=== PATIENT | male | born 1980 | race Caucasian/White ===

== ENCOUNTER 2017-07-06 14:41 | Observation (INO) | payer OTHER ==
[2017-07-06 14:42] VITALS: BP 144/81; PULSE 104; RESP 16; TEMP 98.1; O2SAT 97
[2017-07-06] MEDS ORDERED: SODIUM CHLORIDE 0.9% FLUSH 10 ML FLUSH IV FLUSH PRN (16:45)
[2017-07-06] MEDS ORDERED: SODIUM CHLOR 0.9% 1000 ML INJ 1,000 ML IV SCH (16:45)
[2017-07-06] MEDS ORDERED: FAMOTIDINE 20 MG/2 ML VIAL IV PUSH ONE (16:45)
--- NOTE | 2017-07-06 16:51 | PD ---
HPI Chief Complaint: Abdominal Pain Time Seen by Provider: 16:39 Travel History International Travel<30 days: No Contact w/Intl Traveler<30days: No Traveled to known affect area: No History of Present Illness HPI 37-year-old male complains of right lower quadrant abdominal pain nausea. Patient states the symptoms started yesterday morning. Patient states the pain is cramping pain across her lower abdomen especially right lower quadrant of the abdomen. Patient denies any pain radiation. Patient denies any fever chills. Patient denies any dysuria or frequency. Patient denies any back pain. Patient has history of recurrent abdominal pain unknown etiology in the past. Patient is on omeprazole. Patient denies history hypertension, diabetes , hyperlipidemia. Patient is a smoker. Patient was seen in the [place] clinic today and had a CBC and CMP done. CBC with WBC of 16.5. Hemoglobin 15 point hematocrit 44.5. 77 neutrophil. CMP with calcium 10.8. Normal kidney function. Patient was advised to go to the emergency room for evaluation of possible appendicitis. [facility] Past Medical History Medical History: Denies Significant Hx Diminished Hearing: No Influenza Vaccination: No Past Surgical History Oral Surgery: Yes (wisdom teeth) Other Surgery: Yes (skin ca removed left hand) Social History Alcohol Use: No Tobacco Use: Yes (1/2 ppd) Substance Use: Yes (marijuana daily) Allergies-Medications (Allergen,Severity, Reaction): Coded Allergies: No Known Allergies (Unverified , 07/06/17) Review of Systems General / Constitutional: No: Fever Eyes: No: Visual changes HENT: No: Headaches Cardiovascular: No: Chest Pain or Discomfort Respiratory: No: Shortness of Breath Gastrointestinal: Positive: Abdominal Pain Genitourinary: No: Dysuria Musculoskeletal: No: Pain Skin: No Rash Neurologic: No: Weakness Psychiatric: No: Depression Endocrine: No: Polydipsia Hematologic/Lymphatic: No: Easy Bruising Physical Exam Narrative GENERAL: Well-nourished, well-developed patient. SKIN: Focused skin assessment warm/dry. HEAD: Normocephalic. EYES: No scleral icterus. No injection or drainage. NECK: Supple, trachea midline. No JVD or lymphadenopathy. CARDIOVASCULAR: Regular rate and rhythm without murmurs, gallops, or rubs. RESPIRATORY: Breath sounds equal bilaterally. No accessory muscle use. GASTROINTESTINAL: Abdomen soft, nondistended. Patient has moderate tenderness on palpation right lower quadrant of the abdomen. No rebound tenderness. No mass. MUSCULOSKELETAL: No cyanosis, or edema. BACK: Nontender without obvious deformity. No CVA tenderness. Neurologic exam normal. Data Data Last Documented VS Vital Signs Date Time Temp Pulse Resp B/P (MAP) Pulse Ox O2 Delivery O2 Flow Rate FiO2 07/06/17 17:35 16 97 Room Air 07/06/17 14:42 98.1 104 Orders Orders Iv Access Insert/Monitor (07/06/17 16:45) Ecg Monitoring (07/06/17 16:45) Oximetry (07/06/17 16:45) Sodium Chlor 0.9% 1000 Ml Inj (Ns 1000 M (07/06/17 16:45) Sodium Chloride 0.9% Flush (Ns Flush) (07/06/17 16:45) Famotidine Inj (Pepcid Inj) (07/06/17 16:45) Ct Abd/Pel W Iv Contrast(Rout) (07/06/17 16:45) Iohexol 350 Inj (Omnipaque 350 Inj) (07/06/17 18:42) Levofloxacin 750 Mg Premix Inj (Levaquin (07/06/17 20:15) Metronidazole 500 Mg Inj (Flagyl 500 Mg (07/06/17 20:15) Sodium Chlor 0.9% 1000 Ml Inj (Ns 1000 M (07/06/17 20:15) MDM Medical Decision Making Medical Screen Exam Complete: Yes Emergency Medical Condition: Yes Interpretation(s) 8:[address] scan abdomen and pelvis shows thickening of sigmoid colon typical focal colitis. Differential Diagnosis Differential diagnosis including appendicitis, UTI, pyelonephritis, nephrolithiasis, colitis. Narrative Course 37-year-old male with right lower quadrant abdominal pain. Normal saline solution 1 25 cc an hour. Levaquin 750 mg IV. Flagyl 500 mg IV. Diagnosis Primary Impression: Colitis Admitting Information Admitting Physician Requests: Observation Robby Quevedo MD Jul 06, 2017 16:51
[2017-07-06 17:35] VITALS: RESP 16; O2SAT 97
[2017-07-06] MEDS ORDERED: IOHEXOL 350 MG/ML 10 ML VIAL (for RAD DIAG) IVCONTRAST ONE (18:42)
--- NOTE | 2017-07-06 19:48 | RADRPT ---
EXAM DATE/TIME: 07/06/2017 18:24 [place] COMPARISON: No previous studies available for comparison. INDICATIONS : Right lower quadrant pain since yesterday. IV CONTRAST: 90 cc Omnipaque 350 (iohexol) IV ORAL CONTRAST: No oral contrast ingested. RADIATION DOSE: 16.49 CTDIvol (mGy) MEDICAL HISTORY : Skin cancer. SURGICAL HISTORY : None. ENCOUNTER: Initial ACUITY: 1 day PAIN SCALE: 5/10 LOCATION: Right lower quadrant TECHNIQUE: Volumetric scanning of the abdomen and pelvis was performed. Using automated exposure control and adjustment of the mA and/or kV according to patient size, radiation dose was kept as low as reasonably achievable to obtain optimal diagnostic quality images. DICOM format image data is av ailable electronically for review and comparison. FINDINGS: There is thickening of the mid sigmoid colon in the right lower quadrant and midline of the pelvis. There is prominent surrounding inflammatory change. No abscess is seen. There is a s mall focus of extraluminal air seen at the superior margin of the sigmoid colon in this region. Ther e are a few scattered diverticula in the remaining aspect of the colon. There is diffuse decreased attenuation of the liver. No focal hepatic lesions are seen. The spleen, pancreas, adrenal glands and kidneys are normal. There is minimal hiatal hernia. The pelvic struct ures are grossly intact. The lung bases are clear. The bony structures are grossly intact. CONCLUSION: 1. Thickening of the sigmoid colon with very prominent surrounding inflammatory change likely related to focal colitis. This also could be secondary to diverticulitis. An abscess is not seen. 2. Hepatic steatosis. Yosef Workman MD on July 06, 2017 at 19:29 Board Certified Radiologist. This report was verified electronically.
[2017-07-06] MEDS: SODIUM CHLOR 0.9% 1000 ML INJ 1,000 ML IV SCH (20:15)
[2017-07-06] MEDS ORDERED: metroNIDAZOLE 500 MG INJ 100 ML IV ONE (20:15)
[2017-07-06] MEDS ORDERED: LEVOFLOXACIN 750 MG PREMIX INJ 150 ML IV ONE (20:15)
[2017-07-06 20:18] VITALS: BP 129/67; PULSE 85; RESP 16; O2SAT 95
[2017-07-06] MEDS ORDERED: NALOXONE HCL 0.4 MG/ML AMP IV PUSH PRN (20:45)
[2017-07-06] MEDS: metroNIDAZOLE 500 MG INJ 100 ML IV SCH (21:12)
[2017-07-06] MEDS: SODIUM CHLORIDE 0.9% FLUSH 10 ML FLUSH IV FLUSH SCH (21:12)
[2017-07-06 21:32] VITALS: BP 130/68; PULSE 82; RESP 18; TEMP 98.2; O2SAT 94
[2017-07-06 21:37] LABS: AUTOMATED NEUTROPHIL # 10.8 TH/MM3 (1.8-7.7); BASOPHIL # 0.1 TH/MM3 (0-0.2); BASOPHIL % 0.5 % (0.0-2.0); EOSINOPHIL # 0.3 TH/MM3 (0-0.4); EOSINOPHIL % 1.9 % (0.0-4.0); HEMO FLAGS DIFF FINAL; LYMPHOCYTE # 2.7 TH/MM3 (1.0-4.8); MEAN CORPUSCULAR HGB CONC 34.4 % (32.0-36.0); NEUT % 71.6 % (16.0-70.0); PLATELET COUNT 222 TH/MM3 (150-450); RED BLOOD COUNT 4.67 MIL/MM3 (4.50-5.90); RED CELL DISTRIBUTION WIDTH 13.5 % (11.6-17.2); WHITE BLOOD COUNT 15.1 TH/MM3 (4.0-11.0)
[2017-07-06 21:45] LABS: ANION GAP 8 MEQ/L (5-15); AST (GOT) 21 U/L (15-37); BICARBONATE 26.5 MEQ/L (21.0-32.0); BLOOD UREA NITROGEN 14 MG/DL (7-18); CHLORIDE 102 MEQ/L (98-107); GLOMERULAR FILTRATION RATE 84 ML/MIN (>89); POTASSIUM 3.6 MEQ/L (3.5-5.1); SODIUM (NA) 136 MEQ/L (136-145)
[2017-07-06 21:48] LABS: ALKALINE PHOSPHATASE 71 U/L (45-117); ALT (GPT) 61 U/L (12-78); TOTAL BILIRUBIN ADULT 0.8 MG/DL (0.2-1.0)
[2017-07-06] MEDS: CIPROFLOXACIN 400 MG PREMIX 200 ML IV SCH (23:54)
[2017-07-06] MEDS: SODIUM CHLORIDE 0.9% FLUSH 10 ML FLUSH IV FLUSH PRN (23:54)
[2017-07-07] MEDS: SODIUM CHLOR 0.9% 1000 ML INJ 1,000 ML IV SCH (01:11)
[2017-07-07] MEDS: SODIUM CHLORIDE 0.9% FLUSH 10 ML FLUSH IV FLUSH PRN (01:12)
[2017-07-07 01:19] VITALS: BP 129/66; PULSE 78; RESP 18; TEMP 98.9; O2SAT 95
[2017-07-07 03:47] VITALS: BP 132/96; PULSE 79; RESP 18; TEMP 98.6; O2SAT 95
--- NOTE | 2017-07-07 04:56 | HHI.HP ---
[facility] Admission Diagnosis colitis Diagnoses: Travel History International Travel<30 Days: No Contact w/Intl Traveler <30 Da: No Traveled to Known Affected Are: No History of Present Illness 37-year-old male with past medical history significant for GERD presents to the emergency department with right sided abdominal pain since Wednesday. The patient complains of cramping pain that is worse in the right lower quadrant that extends across to his left lower quadrant. He endorses nausea but denies vomiting or diarrhea. He states the pain improved slightly yesterday morning but worsened again while he was at work. He states he was crawling over some equipment and at that time the pain returned and was severe in nature. He went to see his primary care provider who referred him to the ED for further evaluation. Labs were significant for a leukocytosis of 15.1. CT of the abdomen and pelvis was significant for thickening of the sigmoid colon with surrounding inflammatory change likely related to focal colitis. Review of Systems Denies fever or chills Denies blurry vision, otorrhea, rhinorrhea Denies sore throat and cough No chest pain, palpitations, shortness of breath Positive abdominal pain Positive nausea, denies constipation/diarrhea/vomiting Denies muscle pain/weakness No rashes Past Family Social History Past Medical History GERD Past Surgical History [place] tooth removal Skin cancer removed from his left hand Reported Medications Omeprazole Allergies: Coded Allergies: No Known Allergies (Unverified , 07/06/17) Family History Father with diabetes mellitus. Social History Smokes approximately one half pack per day 20 years. Occasional alcohol use. Positive marijuana use. Denies other illicit drugs. Physical Exam Vital Signs Vital Signs Date Time Temp Pulse Resp B/P (MAP) Pulse Ox O2 Delivery O2 Flow Rate FiO2 07/07/17 03:47 98.6 79 18 132/96 (108) 95 07/07/17 01:19 98.9 78 18 129/66 (87) 95 07/06/17 21:32 98.2 82 18 130/68 (88) 94 07/06/17 20:18 85 16 129/67 (87) 95 Room Air 07/06/17 17:35 16 97 Room Air 07/06/17 14:42 98.1 104 16 144/81 (102) 97 Physical Exam GENERAL: male lying in bed SKIN: No rashes, ecchymoses or lesions. Cool and dry. HEAD: Atraumatic. Normocephalic. No temporal or scalp tenderness. EYES: Pupils equal round and reactive. Extraocular motions intact. No scleral icterus. No injection or drainage. ENT: Nose without bleeding, purulent drainage or septal hematoma. Throat without erythema, tonsillar hypertrophy or exudate. Uvula midline. Airway patent. NECK: Trachea midline. No JVD or lymphadenopathy. Supple, nontender, no meningeal signs. CARDIOVASCULAR: Regular rate and rhythm without murmurs, gallops, or rubs. RESPIRATORY: Clear to auscultation. Breath sounds equal bilaterally. No wheezes , rales, or rhonchi. GASTROINTESTINAL: Abdomen soft, nondistended. Tender to palpation in the left lower quadrants, right greater than left. No hepato-splenomegaly, or palpable masses. No guarding. MUSCULOSKELETAL: Extremities without clubbing, cyanosis, or edema. No joint tenderness, effusion, or edema noted. No calf tenderness. Negative Homans sign bilaterally. NEUROLOGICAL: Awake and alert. Cranial nerves II through XII intact. Motor and sensory grossly within normal limits. Normal speech. Laboratory Laboratory Tests Test 07/06/17 21:15 White Blood Count 15.1 Red Blood Count 4.67 Hemoglobin 14.5 Hematocrit 42.0 Mean Corpuscular Volume 90.0 Mean Corpuscular Hemoglobin 31.0 Mean Corpuscular Hemoglobin Concent 34.4 Red Cell Distribution Width 13.5 Platelet Count 222 Mean Platelet Volume 9.0 Neutrophils (%) (Auto) 71.6 Lymphocytes (%) (Auto) 18.0 Monocytes (%) (Auto) 8.0 Eosinophils (%) (Auto) 1.9 Basophils (%) (Auto) 0.5 Neutrophils # (Auto) 10.8 Lymphocytes # (Auto) 2.7 Monocytes # (Auto) 1.2 Eosinophils # (Auto) 0.3 Basophils # (Auto) 0.1 CBC Comment DIFF FINAL Differential Comment Blood Urea Nitrogen 14 Creatinine 1.00 Random Glucose 100 Total Protein 8.0 Albumin 3.7 Calcium Level 8.7 Alkaline Phosphatase 71 Aspartate Amino Transf (AST/SGOT) 21 Alanine Aminotransferase (ALT/SGPT) 61 Total Bilirubin 0.8 Sodium Level 136 Potassium Level 3.6 Chloride Level 102 Carbon Dioxide Level 26.5 Anion Gap 8 Estimat Glomerular Filtration Rate 84 Result Diagram: 07/06/17211407/06/172114 [facility] Risk Assessment Caprini VTE Risk Assessment: No/Low Risk (score <= 1) Caprini Risk Assessment Model Point Value = 1 Point Value = 2 Point Value = 3 Point Value = 5 Age 41-60 Minor surgery BMI > 25 kg/m2 Swollen legs Varicose veins or History of unexplained or recurrent spontaneous Oral contraceptives or hormone replacement Sepsis (< 1 month) Serious lung disease, including pneumonia (< 1 month) Abnormal pulmonary function Acute myocardial infarction Congestive heart failure (< 1 month) History of inflammatory bowel disease Medical patient at bed rest Age 61-74 Arthroscopic surgery Major open surgery (> 45 min) Laparoscopic surgery (> 45 min) Malignancy Confined to bed (> 72 hours) Immobilizing plaster cast Central venous access Age >= 75 History of VTE Family history of VTE Factor V Leiden Prothrombin [id number] Lupus anticoagulant Anticardiolipin antibodies Elevated serum homocysteine Heparin-induced thrombocytopenia Other congenital or acquired thrombophilia Stroke (< 1 month) Elective arthroplasty Hip, pelvis, or leg fracture Acute spinal cord injury (< 1 month) Prophylaxis Regimen Total Risk Factor Score Risk Level Prophylaxis Regimen 0-1 Low Early ambulation 2 Moderate Order ONE of the following: *Sequential Compression Device (SCD) *Heparin 5000 units SQ BID 3-4 Higher Order ONE of the following medications: *Heparin 5000 units SQ TID *Enoxaparin/Lovenox 40 mg SQ daily (WT < 150 kg, CrCl > 30 mL/min) *Enoxaparin/Lovenox 30 mg SQ daily (WT < 150 kg, CrCl > 10-29 mL/min) *Enoxaparin/Lovenox 30 mg SQ BID (WT < 150 kg, CrCl > 30 mL/min) AND/OR *Sequential Compression Device (SCD) 5 or more Highest Order ONE of the following medications: *Heparin 5000 units SQ TID (Preferred with Epidurals) *Enoxaparin/Lovenox 40 mg SQ daily (WT < 150 kg, CrCl > 30 mL/min) *Enoxaparin/Lovenox 30 mg SQ daily (WT < 150 kg, CrCl > 10-29 mL/min) *Enoxaparin/Lovenox 30 mg SQ BID (WT < 150 kg, CrCl > 30 mL/min) AND *Sequential Compression Device (SCD) Assessment and Plan Assessment and Plan 37-year-old male with past medical history of GERD presents with 2 day history of abdominal pain. 1. Colitis CT of the abdomen and pelvis showed thickened sigmoid colon Cipro/Flagyl PO challenge IV fluids Anticipate transition to by mouth antibiotics and possible discharge later today 2. GERD Protonix FEN Clear liquid diet Electrolytes: wnl, monitor and replete prn NS at 125 cc/hr BRYNs Haleigh Cuevas MD Jul 07, 2017 04:56
[2017-07-07] MEDS: metroNIDAZOLE 500 MG INJ 100 ML IV SCH (05:09)
[2017-07-07 06:12] LABS: AUTOMATED NEUTROPHIL # 10.1 TH/MM3 (1.8-7.7); BASOPHIL # 0.1 TH/MM3 (0-0.2); BASOPHIL % 0.7 % (0.0-2.0); EOSINOPHIL # 0.3 TH/MM3 (0-0.4); EOSINOPHIL % 1.8 % (0.0-4.0); HEMATOCRIT 42.3 % (39.0-51.0); HEMO FLAGS DIFF FINAL; LYMPH % 17.4 % (9.0-44.0); LYMPHOCYTE # 2.4 TH/MM3 (1.0-4.8); MEAN CELL VOLUME 90.5 FL (80.0-100.0); MEAN CORPUSCULAR HEMOGLOBIN 31.1 PG (27.0-34.0); MEAN CORPUSCULAR HGB CONC 34.4 % (32.0-36.0); MONO % 8.1 % (0.0-8.0); PLATELET COUNT 228 TH/MM3 (150-450); RED BLOOD COUNT 4.68 MIL/MM3 (4.50-5.90); RED CELL DISTRIBUTION WIDTH 13.6 % (11.6-17.2)
[2017-07-07 06:40] LABS: BICARBONATE 27.6 MEQ/L (21.0-32.0); POTASSIUM 3.6 MEQ/L (3.5-5.1)
[2017-07-07 08:00] VITALS: BP 133/66; PULSE 72; RESP 16; TEMP 98.3; O2SAT 96
[2017-07-07] MEDS ORDERED: NS + KCL 20 MEQ INJ 1,000 ML IV SCH (09:00)
[2017-07-07] MEDS ORDERED: PANTOPRAZOLE SOD 20 MG DELAYED RELEASE TAB PO SCH (09:00)
[2017-07-07] MEDS: SODIUM CHLORIDE 0.9% FLUSH 10 ML FLUSH IV FLUSH SCH (09:37)
[2017-07-07] MEDS: CIPROFLOXACIN 400 MG PREMIX 200 ML IV SCH (09:51)
[2017-07-07 11:53] VITALS: BP 136/75; PULSE 75; RESP 18; TEMP 98.1; O2SAT 95
[2017-07-07] MEDS ORDERED: METR-1 PO (15:51)
[2017-07-07] MEDS ORDERED: CIPR-9 PO (15:51)
--- NOTE | 2017-07-07 15:52 | HHI.DCPOC ---
Discharge Care Plan Diagnosis: (1) Colitis Goals to Promote Your Health * To prevent worsening of your condition and complications * To maintain your health at the optimal level Directions to Meet Your Goals Take your medications as prescribed Follow your dietary instruction Follow activity as directed Keep your appointments as scheduled Take your immunizations and boosters as scheduled If your symptoms worsen call your PCP, if no PCP go to Urgent Care Center or Emergency Room Smoking is Dangerous to Your Health. Avoid second hand smoke Call the 24-hour hour crisis hotline for domestic abuse at Marifer Valerio Jul 07, 2017 15:52
--- NOTE | 2017-07-07 15:59 | HHI.PR ---
Subjective Remarks Follow up on patient with colitis. Patient seen and examined. Patient denies any abdominal complaints at this time. Reports diarrhea prior to admission but has since resolved. Denies any urinary difficulties. Patient reports colonoscopy approximately 2 years ago with polypectomy that was done at the [facility]. He denies any recent travel history or antibiotic use. He denies any fever or chills. Denies any nausea or vomiting. Objective Vitals Vital Signs Date Time Temp Pulse Resp B/P (MAP) Pulse Ox O2 Delivery O2 Flow Rate FiO2 07/07/17 11:53 98.1 75 18 136/75 (95) 95 07/07/17 08:00 98.3 72 16 133/66 (88) 96 07/07/17 03:47 98.6 79 18 132/96 (108) 95 07/07/17 01:19 98.9 78 18 129/66 (87) 95 07/06/17 21:32 98.2 82 18 130/68 (88) 94 07/06/17 20:18 85 16 129/67 (87) 95 Room Air 07/06/17 17:35 16 97 Room Air I/O 07/06/17 07/06/17 07/06/17 07/07/17 07/07/17 07/07/17 07:00 15:00 23:00 07:00 15:00 23:00 Intake Total 100 ml 240 ml Balance 100 ml 240 ml Intake Oral 240 ml IV Total 100 ml # Voids 1 1 5 Result Diagram: 07/07/17 0525 07/07/17 0525 Imaging Last Impressions Abdomen/Pelvis CT 07/06/17 1645 Signed Impressions: Service Date/Time: Thursday, July 06, 2017 18:24 - CONCLUSION: 1. Thickening of the sigmoid colon with very prominent surrounding inflammatory change likely related to focal colitis. This also could be secondary to diverticulitis. An abscess is not seen. 2. Hepatic steatosis. Yosef Workman MD Objective Remarks GENERAL: WDWN male lying in bed. INAD. Awake and alert. SKIN: Cool and dry. HEAD: Atraumatic. Normocephalic. EYES: Extraocular motions intact. No scleral icterus. No injection or drainage. ENT: Nose without bleeding, purulent drainage or septal hematoma. Airway patent. MMM. NECK: Trachea midline. CARDIOVASCULAR: Regular rate and rhythm without murmurs, gallops, or rubs. RESPIRATORY: Clear to auscultation. Breath sounds equal bilaterally. No wheezes , rales, or rhonchi. GASTROINTESTINAL: Abdomen soft, nondistended. Sensitive but nontender to palpation. No hepato-splenomegaly, or palpable masses. No guarding. MUSCULOSKELETAL: Extremities without clubbing, cyanosis, or edema. No joint tenderness, effusion, or edema noted. No calf tenderness. NEUROLOGICAL: Awake and alert. Able to move all extremities spontaneously. Normal speech. Medications and IVs Current Medications Medications (Trade) Dose Ordered Sig/Ciro Route Start Time Stop Time Status Last Admin Ciprofloxacin/ Dextrose 200 ml @ 200 mls/hr Q12H IV 07/06/17 22:00 07/07/17 09:51 Metronidazole 100 ml @ 100 mls/hr Q8H IV 07/06/17 21:00 07/07/17 05:09 (NS Flush) 2 ml UNSCH PRN IV FLUSH 07/06/17 20:45 07/07/17 01:12 (NS Flush) 2 ml BID IV FLUSH 07/06/17 21:00 07/06/17 21:12 (Narcan Inj) 0.4 mg UNSCH PRN IV PUSH 07/06/17 20:45 (Protonix) 20 mg DAILY PO 07/07/17 09:00 07/07/17 09:38 Potassium Chloride/Sodium Chloride 1,000 ml @ 100 mls/hr Q10H IV 07/07/17 09:00 07/07/17 09:37 A/P Assessment and Plan 37-year-old male with past medical history of GERD presents with 2 day history of abdominal pain. 1. Colitis CT of the abdomen and pelvis showed thickened sigmoid colon Cipro/Flagyl, change to po Resolution of abdominal pain, nausea and vomiting PO challenge, patient tolerating regular diet hx of colon[facility], patient to follow-up with his mental health orderly as outpatient 2. GERD Protonix Discharge patient to home Condition on discharge: Improved Regular Diet as tolerated Ad [place] activity Rx written: Cipro and Flagyl Follow-up with primary care physician and Marifer Ledesma Jul 07, 2017 15:59
== END 2017-07-07 18:35 | disposition home or self-care (01) ==
LOC: NEPD 14:41 → NEDA 20:20 → NEPFCDU 21:27
PROVIDERS: ADMIT Internal Medicine; ATTEND Internal Medicine
DX: K52.9 Noninfective gastroenteritis and colitis, unspecified (principal); K76.0 Fatty (change of) liver, not elsewhere classified; K21.9 Gastro-esophageal reflux disease without esophagitis; F17.200 Nicotine dependence, unspecified, uncomplicated; F12.90 Cannabis use, unspecified, uncomplicated; Z85.828 Personal history of other malignant neoplasm of skin
CPT/HCPCS: 74177; 80048; 80053; 85025; 96361; 96365; 96366; 96367; 96375; 96376; 99285; G0378; J0744; J3480; J7030; Q9967